=== PATIENT | female | born 1975 | race Caucasian/White ===

== ENCOUNTER 2019-03-01 12:01 | Emergency (ER) | payer MEDICAID ==
[~2019-03-01] VITALS: Ht 170.2 cm; Wt 69.1 kg
[2019-03-01 12:05] VITALS: BP 119/85
== END 2019-03-01 13:09 | disposition home or self-care (01) ==
LOC: ED 12:52
DX: C79.9 Secondary malignant neoplasm of unspecified site (principal); F17.200 Nicotine dependence, unspecified, uncomplicated; I25.2 Old myocardial infarction
CPT/HCPCS: 96372; 99283; J1170

== ENCOUNTER 2019-03-02 06:01 | Emergency (ER) | payer MEDICAID ==
[~2019-03-02] VITALS: Ht 170.2 cm; Wt 69.0 kg
[2019-03-02 06:04] VITALS: BP 125/85
== END 2019-03-02 06:23 | disposition left against medical advice (07) ==
LOC: ED 06:12
DX: Z53.21 Procedure and treatment not carried out due to patient leaving prior to being seen by health care provider (principal)